=== PATIENT | female | born 1980 | race African-American/Black ===

== ENCOUNTER 2019-12-28 14:46 | Emergency (ER) | payer MEDICAID ==
[~2019-12-28] VITALS: Ht 160 cm; Wt 68.0 kg
[~2019-12-28 14:46] MED LIST: PENICILLIN VK500 M1 PO; TRAMADOL 50 MG50 MG PO
[2019-12-28 15:19] LABS: ABSOLUTE NEUTROPHILS 3.2 thou/uL (1.4-8.2); EOSINOPHILS 1.5 % (0.0-3.0); HEMOGLOBIN 14.4 gm/dL (12.0-15.0); LYMPHOCYTES 31.1 % (24.0-44.0); MCH 32.2 pg (26.0-34.0); MCV 91.8 fL (80.0-100.0); MONOCYTES 10.5 % (1.0-8.0); PLATELET COUNT 356 thou/uL (150-400); POLYS 55.9 % (36.0-66.0); RBC 4.46 mil/uL (4.20-5.00); RDW 12.8 % (10.5-14.5); WBC 5.6 thou/uL (4.0-11.0)
[2019-12-28 15:27] LABS: ANION GAP 12 mmol/L (7-16); BUN 8 mg/dL (7-18); CALCIUM 8.9 mg/dL (8.5-10.1); CHLORIDE 107 mmol/L (98-107); CO2 20 mmol/L (21-32); CREATININE 0.8 mg/dL (0.6-1.0); GLUCOSE 115 mg/dL (74-106); POTASSIUM 3.8 mmol/L (3.5-5.1); SODIUM 139 mmol/L (136-145)
[2019-12-28 15:32] LABS: SALICYLATE < 2.8 mg/dL (2.8-20.0)
[2019-12-28 17:28] LABS: AMP/METHAMP Negative (Negative); BARBITURATES Negative (Negative); BENZODIAZEPINES Negative (Negative); COCAINE Negative (Negative); METHADONE Negative (Negative); OPIATES Negative (Negative); PCP Negative (Negative)
[2019-12-28 17:29] VITALS: BP 102/62
== END 2019-12-28 20:08 | disposition home or self-care (01) ==
LOC: ER 14:46
PROVIDERS: Nurse Practitioner
DX: F32.9 Major depressive disorder, single episode, unspecified (principal); G47.00 Insomnia, unspecified; F43.9 Reaction to severe stress, unspecified; Z90.49 Acquired absence of other specified parts of digestive tract